=== PATIENT | male | born 1955 | race Caucasian/White ===

== ENCOUNTER → 2025-04-23 | Outpatient (CLI) | payer MEDICARE, OTHER ==
--- NOTE | 2025-04-23 13:38 | MR ---
INDICATION: Patient age:Male; 69 years old; Reason for study: I63.9 CEREBRAL INFARCTION, UNSPECIFIED; [facility]. COMPARISON: None. TECHNIQUE: Multi planar, multi sequence imaging was performed through the brain without intravenous c ontrast FINDINGS: The garcia-white junctions, ventricular system, basal cisterns appear unremarkable for level of cerebra l atrophy. Age-appropriate mild to moderate cerebral volume loss. Diffusion-weighted imaging shows no evidence of restricted diffusion to suggest acute/subacute infarct. Intracranial arterial flow voids are maintained. Midline structures show no abnormality. Patchy and confluent areas of high T2/FLAIR signal intensity are seen within the periventricular and subcortical white matter. Remote lacunar inf arcts within the right basal ganglia lentiform nucleus and caudate nucleus head. Remote lacunar infar cts within the bilateral thalami. The susceptibility weighted images do not reveal any evidence for m icro-hemorrhage. The bone marrow signal is within normal limits. The globes are unremarkable. Minimal mucosal thickeni ng in the inferior right maxillary sinus. IMPRESSION: 1. No evidence of intracranial mass or acute/subacute infarct. 2. 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 [facility], , 04/23/2025 1:36 PM
== END | disposition home or self-care (01) ==
LOC: RADMRIMAIN 11:23
PROVIDERS: ATTEND Psychiatry & Neurology Neurology
DX: I63.9 Cerebral infarction, unspecified (principal)
CPT/HCPCS: 70551